=== PATIENT | male | born 2000 | race Caucasian/White ===

== ENCOUNTER 2018-02-26 19:44 | Emergency (ER) | payer SELFPAY ==
--- NOTE | 2018-02-26 20:37 | C.PDOC ---
History Of Present Illness Pt c/o scrotal pain. He states he went to [facility] [place] where they did a testicle US that was unremarkable, but they did not treat him with antibiotics according to pt. Pt is requesting treatment for STDs. Time Seen by Provider: 02/26/18 20:09 Chief Complaint (Nursing): Male Genitourinary History Per: Patient Onset/Duration Of Symptoms: Days (about 1 week) Current Symptoms Are (Timing): Still Present Severity: Moderate Quality Of Discomfort: "Pain" Alleviating Factors: None Additional History Per: Prior Records Past Medical History Reviewed: Historical Data, Nursing Documentation, Vital Signs Vital Signs: Last Vital Signs Temp 97.9 F 02/26/18 19:58 Pulse 92 H 02/26/18 19:58 Resp 16 02/26/18 19:58 BP 160/79 H 02/26/18 19:58 Pulse Ox 100 02/26/18 20:37 - Medical History PMH: No Chronic Diseases Surgical History: No Surg Hx Family History: States: Unknown Family Hx - Social History Hx Alcohol Use: No Hx Substance Use: No Review Of Systems Except As Marked, All Systems Reviewed And Found Negative. Constitutional: Negative for: Fever, Weakness Cardiovascular: Negative for: Chest Pain Respiratory: Negative for: Shortness of Breath Gastrointestinal: Negative for: Vomiting, Abdominal Pain, Diarrhea Genitourinary: Positive for: Penile Discharge, Scrotal Pain Musculoskeletal: Negative for: Neck Pain, Back Pain Skin: Negative for: Rash Neurological: Negative for: Weakness, Numbness Physical Exam - Physical Exam Appears: Non-toxic, No Acute Distress Skin: Normal Color, Warm, Dry, No Rash Head: Atraumatic, Normacephalic Eye(s): bilateral: Normal Inspection, PERRL, EOMI Neck: Normal ROM, Supple Cardiovascular: Rhythm Regular Respiratory: Normal Breath Sounds, No Accessory Muscle Use Gastrointestinal/Abdominal: Soft, No Tenderness Back: No CVA Tenderness Male Genital: Testicular Tenderness (?nonspecific), No Inguinal Tenderness, No Inguinal Swelling, No Scrotal Swelling, Circumcised Extremity: Normal ROM Neurological/Psych: Oriented x3, Normal Motor, Normal Sensation ED Course And Treatment O2 Sat by Pulse Oximetry: 100 Pulse Ox Interpretation: Normal Disposition Counseled Patient/Family Regarding: Studies Performed, Diagnosis, Need For Followup, Rx Given - Disposition Referrals: at [facility] [Outside] Disposition: HOME/ ROUTINE Disposition Time: 21:21 Condition: STABLE Additional Instructions: Follow up in the clinic for further evaluation and treatment. Return to the ER if you develop worsening of symptoms or if you have any other concerns. Prescriptions: Doxycycline Hyclate [Doryx] 100 mg PO BID #28 cap Instructions: Epididymo-orchitis (ED) - Clinical Impression Clinical Impression: Orchitis and epididymitis
[2018-02-26] MEDS ORDERED: cefTRIAXone (Rocephin) 250 mg Inj IM STA (20:40)
[2018-02-26 21:03] LABS: SQUAMOUS EPITHIAL < 1 /hpf (0-5); URINE BILIRUBIN NEGATIVE (NEGATIVE); URINE BLOOD NEGATIVE (NEGATIVE); URINE CLARITY Clear (Clear); URINE COLOR Yellow (YELLOW); URINE GLUCOSE (UA) NORMAL (Normal); URINE LEUKOCYTE ESTERASE NEG Leu/uL (Negative); URINE PROTEIN 1+ mg/dL (NEGATIVE)
[2018-02-26 22:17] VITALS: BP 130/78; PULSE 72; RESP 18; TEMP 98; O2SAT 98
== END 2018-02-26 22:23 | disposition home or self-care (01) ==
LOC: EDBD 19:44 → C.ER 19:44
DX: N45.3 Epididymo-orchitis (principal)
CPT/HCPCS: 81001; 87086; 87491; 87591; 96372; 99284; J0696

== ENCOUNTER 2018-03-13 22:19 | Emergency (ER) | payer BC, OTHER ==
[2018-03-13 22:35] VITALS: BP 112/72; PULSE 77; RESP 20; TEMP 97.7; O2SAT 100
[2018-03-13 23:02] LABS: URINE BILIRUBIN NEGATIVE (NEGATIVE); URINE BLOOD NEGATIVE (NEGATIVE); URINE CLARITY Clear (Clear); URINE GLUCOSE (UA) NORMAL (Normal); URINE LEUKOCYTE ESTERASE 3+ Leu/uL (Negative); URINE PROTEIN NEGATIVE (NEGATIVE); URINE UROBILINOGEN NORMAL mg/dL (0.2-1.0)
[2018-03-13 23:08] LABS: URINE COLOR LIGHT YELLOW (YELLOW)
[2018-03-13] MEDS ORDERED: Tmp-Smz 800 mg-160 mg DS Tab PO STA (23:11)
--- NOTE | 2018-03-13 23:11 | C.PDOC ---
History Of Present Illness 17 year old male presents to the ER stating he has a UTI. Patient states he was seen here 2 weeks ago for a UTI and STDs, he was started on antibiotics which he finished with improvement of pain. However, he states he still has a "UTI", complains of dysuria. Patient also notes he recently had an STD screening done at the clinic which was negative. Denies rash or penile discharge, testicular pain or swelling. Time Seen by Provider: 03/13/18 22:37 Chief Complaint (Nursing): Male Genitourinary History Per: Patient History/Exam Limitations: no limitations Onset/Duration Of Symptoms: Days Current Symptoms Are (Timing): Still Present Quality Of Discomfort: Other (Heaviness) Associated Symptoms: denies: Fever, Chills, Urinary Symptoms Alleviating Factors: None Recent travel outside of the [place]: No Past Medical History Reviewed: Historical Data, Nursing Documentation, Vital Signs Vital Signs: Last Vital Signs Temp 97.7 F 03/13/18 22:31 Pulse 77 03/13/18 22:31 Resp 20 03/13/18 22:31 BP 112/72 03/13/18 22:31 Pulse Ox 100 03/13/18 23:26 - Medical History PMH: No Chronic Diseases Surgical History: No Surg Hx Family History: States: Unknown Family Hx - Social History Hx Alcohol Use: No Hx Substance Use: No Review Of Systems Constitutional: Negative for: Fever, Chills Gastrointestinal: Negative for: Abdominal Pain Genitourinary: Positive for: Dysuria, Other (Heaviness to testicles). 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 Patient started on antibiotics and advised to follow up with PMD or return if symptoms worsen. Disposition Counseled Patient/Family Regarding: Diagnosis, Need For Followup, Rx Given - Disposition Referrals: [facility] [Outside] Disposition: HOME/ ROUTINE Disposition Time: 23:15 Condition: GOOD Additional Instructions: Take antibiotic twice daily and be sure to finish taking all of antibiotic. Drink plenty of fluids. If urine culture was performed, call back for results in 2-3 days for results to confirm antibiotic is treating UTI well. [phone] Prescriptions: Sulfamethoxazole/Trimethoprim [Bactrim DS 800 mg-160 mg] 1 tab PO BID #14 tab Instructions: Urinary Tract Infection, Adult (DC) Forms: [employer] (Slovenian) - POA Present On Arrival: None - Clinical Impression Clinical Impression: UTI (urinary tract infection) - PA / HYDRATOR / Resident Statement MD/DO has reviewed & agrees with the documentation as recorded. - Scribe Statement The provider has reviewed the documentation as recorded by the Scribe Feliberto Winston All medical record entries made by the Scribe were at my direction and personally dictated by me. I have reviewed the chart and agree that the record accurately reflects my personal performance of the history, physical exam, medical decision making, and the department course for this patient. I have also personally directed, reviewed, and agree with the discharge instructions and disposition.
[2018-03-13] MEDS ORDERED: Tmp-Smz 800 mg-160 mg DS Tab ONE (23:16)
== END 2018-03-13 23:18 | disposition home or self-care (01) ==
LOC: C.ER 22:19
DX: N39.0 Urinary tract infection, site not specified (principal)

== ENCOUNTER 2018-03-24 15:08 | Emergency (ER) | payer OTHER, BC ==
[2018-03-24 15:20] VITALS: BP 107/65; PULSE 80; RESP 18; TEMP 98; O2SAT 98
--- NOTE | 2018-03-24 15:38 | C.PDOC ---
History Of Present Illness 17 Y/O MALE PRESENTING TO THE ER COMPLAINING OF RECURRENT SUPRAPUBIC PAIN FOR ONE DAY. PATIENT DESCRIBES PAIN LOCALIZED AND INTERMITTENT. HE DENIES ANY DYSURIA, FREQUENCY, FEVER, CHILLS. PATIENT WAS SEEN ON 02/26 AND 03/13 AND DISCHARGED WITH DOXYCYCLINE AND BACTRIM FOR THE SAME SYMPTOMS. [facility], '' THEY DID BLOOD TEST AND SAID EVERYTHING WAS FINE. HE REPORTS FINISHING BACTRIM ON 03/13 AND STATES "I FELT FINE WHEN I WAS ON IT", BUT HAS RECURRENT PAIN TODAY. PATIENT DENIES ANY TESTICULAR PAIN, SWELLING, DISCHARGE, FEVER, NAUSEA/VOMITING/DIARRHEA. HE ADMITS TO BEING SEXUALLY ACTIVE BUT PRACTICES SAFE SEX. HE DENIES DISCHARGE, RASH OR OTHER SYMPTOMS PRIOR TO EVALUATION. RECUR SUPRAPUB PAIN X 1 DAY. LOCALIZED INTERMIT. DENIES DYSURIA, FREQ. SEEN 02/26 AND 03/13, DC DOXYCYLINE AND BACTRIM FOR SAME. PS EVAL [facility] FOR SAME, "THEY DID BLOOD TEST AND SAID EVERYTHING WAS FINE". FINISHED BACTRIM 03/23 "I FELT FINE WHEN I WAS ON IT", NOW W RECUR PAIN TODAY. NO TEST PAIN, SWELL, DC. NO FEVER, NVD. +SEX ACTIVE BUT STATES PRACTICES SAFE SEX. NO DC, RASH OR OTHER NEW SX SINCE PRIOR EVAL EXAM NAD NONTOXIC ABD NEG REMAINDER NEG MDM OLD RECORD REVIEWED: NEG UCX X 2. NEG GC. UNLIKELY UTI CAUSE. ADVISED NEED FOR UROLOGIST EVAL. NO S/S ACUTE ABD. Time Seen by Provider: 03/24/18 15:18 Chief Complaint (Nursing): Male Genitourinary History Per: Patient History/Exam Limitations: no limitations Onset/Duration Of Symptoms: Days Current Symptoms Are (Timing): Still Present Associated Symptoms: denies: Fever, Nausea, Vomiting, Diarrhea, Urinary Symptoms Past Medical History Reviewed: Historical Data, Nursing Documentation, Vital Signs Vital Signs: Last Vital Signs Temp 98.0 F 03/24/18 15:16 Pulse 80 03/24/18 15:16 Resp 18 03/24/18 15:16 BP 107/65 03/24/18 15:16 Pulse Ox 98 03/24/18 15:40 - Medical History PMH: No Chronic Diseases Surgical History: No Surg Hx Family History: States: No Known Family Hx - Social History Hx Alcohol Use: No Hx Substance Use: No Review Of Systems Except As Marked, All Systems Reviewed And Found Negative. Constitutional: Negative for: Fever, Chills Gastrointestinal: Negative for: Nausea, Vomiting Genitourinary: Negative for: Dysuria, Frequency Musculoskeletal: Positive for: Other (RECURRENT SUPRAPUBIC PAIN) Skin: Negative for: Rash Physical Exam - Physical Exam Appears: Non-toxic, No Acute Distress Skin: Normal Color, Warm, Dry Head: Atraumatic, Normacephalic Eye(s): bilateral: Normal Inspection Oral Mucosa: Moist Neck: Supple Chest: Symmetrical Cardiovascular: Rhythm Regular Respiratory: Normal Breath Sounds, No Rales, No Rhonchi, No Wheezing Gastrointestinal/Abdominal: Normal Exam, Soft, No Tenderness, No Distention, No Guarding Extremity: Normal ROM Neurological/Psych: Oriented x3 Gait: Steady ED Course And Treatment O2 Sat by Pulse Oximetry: 98 (RA) Pulse Ox Interpretation: Normal Progress Note: Patient instructed to follow up with Uruologist. Medical Decision Making Medical Decision Making: OLD RECORD REVIEWED: NEG UCX X 2. NEG GC. UNLIKELY UTI CAUSE. ADVISED NEED FOR UROLOGIST EVAL. NO S/S ACUTE ABD. Disposition Counseled Patient/Family Regarding: Diagnosis, Need For Followup - Disposition Referrals: [facility] [Outside] [facility] [Outside] Michael Campo MD [Staff Provider] - Disposition: HOME/ ROUTINE Disposition Time: 15:35 Condition: GOOD Additional Instructions: FOLLOW UP WITH UROLOGIST FOR FURTHER EVALUATION. DRINK 1-2 L WATER DAILY. Instructions: Bladder Spasms (DC) Forms: [employer] (Ukrainian) - Clinical Impression Clinical Impression: Bladder pain - Scribe Statement The provider has reviewed the documentation as recorded by the Scribe Beth Allen All medical record entries made by the Scribe were at my direction and personally dictated by me. I have reviewed the chart and agree that the record accurately reflects my personal performance of the history, physical exam, medical decision making, and the department course for this patient. I have also personally directed, reviewed, and agree with the discharge instructions and disposition.
== END 2018-03-24 15:44 | disposition home or self-care (01) ==
LOC: C.ER 15:08
DX: R39.89 Other symptoms and signs involving the genitourinary system (principal)